=== PATIENT | male | born 1990 | race Caucasian/White ===

== ENCOUNTER 2017-07-16 09:42 | Emergency (ER) | payer OTHER ==
[2017-07-16] MEDS: DEXAMETHASONE 10 MG/ML 1 ML INJ IM (11:45)
[2017-07-16] MEDS: DIPHENHYDRAMINE 50 MG CAP PO (11:45)
[2017-07-16] MEDS: ALBUTEROL 0.083% (NEB) 2.5 MG/3 ML AMP HHN (11:59)
[2017-07-16] MEDS: IPRATROPIUM (NEB) 0.5 MG/2.5 ML AMP HHN (11:59)
[2017-07-16] MEDS ORDERED: ALBUTEROL 0.5% (NEB) 2.5 MG/0.5 ML AMP (12:23)
[2017-07-16] MEDS: ALBUTEROL 0.5% (NEB) 2.5 MG/0.5 ML AMP INH (12:28)
== END 2017-07-16 13:55 | disposition home or self-care (01) ==
LOC: FTE 09:42
DX: J45.901 Unspecified asthma with (acute) exacerbation (principal)
CPT/HCPCS: 94644; 94664; 96372; 99284-25

== ENCOUNTER 2017-11-03 08:28 | Emergency (ER) | payer OTHER ==
[2017-11-03] MEDS: predniSONE 20 MG TAB PO (08:47)
[2017-11-03] MEDS: ALBUTEROL 0.083% (NEB) 2.5 MG/3 ML AMP NEB ×2 (08:52→10:02)
[2017-11-03] MEDS: IPRATROPIUM (NEB) 0.5 MG/2.5 ML AMP NEB ×2 (08:52→10:01)
== END 2017-11-03 10:55 | disposition home or self-care (01) ==
LOC: FTE 08:28
DX: J45.901 Unspecified asthma with (acute) exacerbation (principal)
CPT/HCPCS: 94640; 94664; 99285-25